=== PATIENT | female | born 1945 | race Caucasian/White ===

== ENCOUNTER → 2017-11-05 | Outpatient (CLI) | payer MEDICARE, OTHER ==
[~2017-11-05] MED LIST: IOPAMIDOL 370 MG/ML 200 ML INFUS..BTL INJ ONE; SODIUM CHLORIDE 0.9% 50ML 50 ML ONE
[2017-11-05 16:52] LABS: BASOPHILS % 0.4 % (0.0-1.0); EOSINOPHILS # (AUTO) 0.1 (0.0-0.4); EOSINOPHILS % 1.7 % (0.0-6.0); HEMATOCRIT 39.2 % (34.2-44.1); HEMOGLOBIN 13.1 g/dL (12.0-16.0); LYMPHOCYTES # (AUTO) 3.2 (1.0-3.2); MEAN CORPUSCULAR HEMOGLOBIN 30.3 pg (28-32); MEAN CORPUSCULAR HGB CONC 33.4 g/dL (31-35); MEAN CORPUSCULAR VOLUME 90.5 fL (81-99); MONOCYTES # (AUTO) 0.5 (0.2-0.8); MONOCYTES % 7.1 % (4.4-11.3); NEUTROPHILS # (AUTO) 3.7 (2.1-6.9); NEUTROPHILS % 48.7 % (38.7-80.0); PLATELET COUNT 243 x10e3/uL (140-360); RED BLOOD COUNT 4.33 x10e6/uL (3.6-5.1); RED CELL DISTRIBUTION WIDTH 12.9 % (11.7-14.4)
[2017-11-05 17:08] LABS: ALANINE AMINOTRANSFERASE 13 IU/L (0-55); ALBUMIN 4.3 g/dL (3.5-5.0); ALBUMIN/GLOBULIN RATIO 1.1 (0.8-2.0); ALKALINE PHOSPHATASE 64 IU/L (40-150); BLOOD UREA NITROGEN 22 mg/dL (7-26); BUN/CREATININE RATIO 28 (6-25); CALCIUM 9.3 mg/dL (8.4-10.2); CARBON DIOXIDE 24 mmol/L (22-29); CHLORIDE 106 mmol/L (98-107); CREATININE, SERUM 0.78 mg/dL (0.57-1.11); EST GLOMERULAR FILTRATION RATE > 60 ML/MIN (60-); GLUCOSE 97 mg/dL (74-118); SODIUM 141 mmol/L (136-145)
--- NOTE | 2017-11-05 17:47 | Diagnostic Imaging Report ---
PROCEDURE: CT ABDOMEN WITH CONTRAST TECHNIQUE: The abdomen was scanned utilizing a multidetector helical scanner from the diaphragm to the iliac crest after the IV administration of 100 cc of Isovue 370 and the oral administration of water .Coronal and sagittal multiplanar reformations were obtained. COMPARISON: None. INDICATIONS: UPPER ABDOMINAL PAIN FINDINGS: LOWER THORAX: Linear opacities in bilateral lower lobes and lingula, likely represent subsegmental atelectasis or scarring. HEPATOBILIARY: No focal hepatic lesions. Mild prominence of the central intrahepatic bile ducts, and mild dilation of the common bile duct, which measures 8 mm at the mulu hepatis and 5 mm at the pancreatic head. No radiopaque intraluminal filling defect. Cholecystectomy clips. SPLEEN: No splenomegaly. PANCREAS: No focal masses or ductal dilatation. ADRENALS: No adrenal nodules. KIDNEYS: No hydronephrosis, stones, or solid mass lesions. PERITONEUM / RETROPERITONEUM: No free air or fluid. LYMPH NODES: No lymphadenopathy. VESSELS: The celiac trunk, superior and inferior mesenteric, and bilateral renal arteries are patent. Portal, superior mesenteric, and splenic veins are patent. GI TRACT: Moderate diffuse wall thickening involving the distal antrum and pylorus (series 2, images 23-25 and coronal images were 28-33). No focal lesions. Rest of the bowel shows no wall thickening. No obstruction. BONES AND SOFT TISSUES: Nonaggressive lytic lesion. Multilevel degenerative disc changes in the visualized spine. IMPRESSION: 1. findings in the distal antrum and pylorus likely represent gastritis (which may be infectious or inflammatory). No focal lesions are identified. Rest of the bowel is unremarkable. 2. Mild prominence of the central intrahepatic bile duct and mild dilation of the common bile duct likely reflect post cholecystectomy status. Da Antoine M.D. Dictated by: Da Antoine M.D. on 11/05/2017 at 17:47 Electronically approved by: Da Antoine M.D. on 11/05/2017 at 17:47
--- NOTE | 2017-11-05 18:00 | Diagnostic Imaging Report ---
PROCEDURE: A single AP view of the chest. COMPARISON: Patients [facility], DX, RIBS UNILAT W/CXR, 09/13/2016, 15:37. Patients [facility], DX, CHEST 2 VIEWS, 09/13/2016, 15:37. INDICATIONS: UPPER ABDOMINAL/CHEST PAIN FINDINGS: Lines/tubes: None. Lungs: Lungs are well-inflated. Ill-defined 6-7 mm density projecting over the proximal aspect of the right first rib, which is less clearly visualized on chest x-ray dated 09/13/2016, and not seen in multiple views of the right apex on ribs series . No consolidation or pulmonary edema. 03/2017 Pleura: There is no pleural effusion or pneumothorax. Heart and mediastinum: Cardiac silhouette is unremarkable. Pulmonary vasculature is normal. Atherosclerotic calcification of the thoracic aortic arch. Bones: No acute bony abnormality. IMPRESSION: 1. No acute cardiopulmonary abnormalities 2. Ill-defined 6-7 mm density projecting over the right first rib probably represents summation of bony and apical pleural shadows, as it is seen in some, but not all previous views. A focal sclerotic lesion of the first rib, such as bone island, is less likely. Recommend followup chest, PA and lateral in 3 months to document stability. Alternatively, a chest CT may be obtained for further evaluation, if clinically indicated. Da Antoine M.D. Dictated by: Da Antoine M.D. on 11/05/2017 at 18:00 Electronically approved by: Da Antoine M.D. on 11/05/2017 at 18:00
== END ==
LOC: CT 16:23
PROVIDERS: ATTEND Internal Medicine Gastroenterology
DX: R10.13 Epigastric pain (principal); R19.7 Diarrhea, unspecified; K29.70 Gastritis, unspecified, without bleeding
CPT/HCPCS: 36415; 71045; 74160; 80053; 85025; Q9967

== ENCOUNTER → 2017-12-04 | Outpatient (CLI) | payer MEDICARE, OTHER ==
--- NOTE | 2017-12-04 12:12 | Diagnostic Imaging Report ---
EXAMINATION: MRI of the lumbar spine without contrast HISTORY: Low back pain for last 3 weeks COMPARISON: Lumbar spine MRI on 10/05/2014 TECHNIQUE: Sagittal T1, T2, STIR; axial T2 and proton density. FINDINGS: It is assumed that there are 5 lumbar vertebrae. Curvature/Alignment: Normal lordosis. Grade 1 degenerative spondylolisthesis at L4-L5, minimal retrolisthesis at L1-L2 and minimal anterolisthesis at L3-L4 are unchanged. Vertebrae: No evidence of recent fracture, infection, or neoplasm. Minimal chronic anterior wedging of the partially visualized T10 and T11 vertebral bodies, unchanged from prior study. Chronic endplate degenerative changes in the lower thoracic spine and at L4-L5. New deep Schmorl node in the superior endplate of L4 and a shallow one in the inferior endplate of L4 with associated bone marrow edema. Conus: Normal, terminating at L1-L2 Cauda equina: Unremarkable. Lower thoracic: Unremarkable. Paraspinal soft tissues: Unremarkable. Degenerative changes: L1-L2: Persistent mild facet arthrosis without stenosis L2-L3: Minimal disc bulge and facet arthrosis without canal or foraminal stenosis L3-L4: Persistent symmetric disc bulge, ligamenta flava thickening and moderate facet arthrosis. Moderate spinal canal. No significant foraminal stenosis L4-L5: Decompressive laminectomy. Persistent symmetric disc bulge and facet arthrosis with [id number] foraminal stenoses. Improved previously seen mild degenerative synovitis. L5-S1: Minimal symmetric disc bulge and facet arthrosis. No canal or foraminal stenosis. IMPRESSION: 1. New deep Schmorl nodes at L4 with subchondral bone marrow edema. 2. Persistent moderate degenerative spinal canal stenosis at L3-L4. 3. Improved degenerative synovitis at L4-L5. Signed by: Dr. Rossy Velasquez M.D. on 12/04/2017 12:08 PM
--- NOTE | 2017-12-04 12:34 | Diagnostic Imaging Report ---
EXAMINATION: MRI of the cervical spine without contrast HISTORY: Neck and right arm pain for last 4 weeks COMPARISON: None available TECHNIQUE: Sagittal T1, T2, STIR; axial T2, gradient echo and T1. FINDINGS: Curvature: Normal lordosis. Vertebrae: No evidence of neoplasm, infection, or fracture. Chronic endplate degenerative changes at C3, C4 and T1 Foramen magnum: No mass, Chiari malformation, or basilar invagination. Spinal Cord: Normal size and signal intensity. Soft Tissues: Unremarkable. Degenerative changes: C1-C2: Mild degenerative changes without stenosis C2-C3: No stenoses C3-C4: Disc osteophyte complex formation, bilateral uncovertebral and facet arthrosis. Moderate spinal canal and mild to moderate foraminal stenosis C4-C5: Disc osteophyte complex formation, bilateral uncovertebral and facet arthrosis minimally on the left. Moderate spinal canal stenosis. Moderate right and severe left foraminal stenosis. C5-C6 to C7: Status post ACDF, with solid interbody fusion from C5 to C7 without spinal canal or foraminal stenoses C7-T1: Mild bilateral facet arthrosis without significant canal or foraminal stenosis. T1-T2 to T4-T5: Mild symmetric disc bulge without significant stenosis. IMPRESSION: 1. Status post ACDF with solid interbody fusion from C5 to C7 without stenosis. 2. Moderate degenerative spinal canal and [id number] foraminal stenosis at C3-C4. 3. Moderate degenerative spinal canal, moderate right and severe left foraminal stenosis at C4-C5. Signed by: Dr. Rossy Velasquez M.D. on 12/04/2017 12:30 PM
== END ==
LOC: MRI 09:28
PROVIDERS: ATTEND Orthopaedic Surgery Sports Medicine
DX: M54.16 Radiculopathy, lumbar region (principal); M54.12 Radiculopathy, cervical region
CPT/HCPCS: 72141; 72148

== ENCOUNTER → 2020-05-15 | Outpatient (CLI) | payer MEDICARE, OTHER ==
[2020-05-15 13:39] LABS: HEMATOCRIT 40.7 % (34.2-44.1); MEAN CORPUSCULAR HGB CONC 31.9 g/dL (31-35); MEAN CORPUSCULAR VOLUME 90.6 fL (81-99); PLATELET COUNT 278 x10e3/uL (140-360); RED BLOOD COUNT 4.49 x10e6/uL (3.6-5.1); RED CELL DISTRIBUTION WIDTH 12.5 % (11.7-14.4)
[2020-05-15 13:57] LABS: ALANINE AMINOTRANSFERASE 14 IU/L (0-55); ALBUMIN 4.3 g/dL (3.5-5.0); ALBUMIN/GLOBULIN RATIO 1.2 (0.8-2.0); ALKALINE PHOSPHATASE 79 IU/L (40-150); BLOOD UREA NITROGEN 16 mg/dL (7-26); BUN/CREATININE RATIO 20 (6-25); CALCIUM 8.8 mg/dL (8.4-10.2); CARBON DIOXIDE 21 mmol/L (22-29); CHLORIDE 105 mmol/L (98-107); CHOL/HDL RATIO 4.6 (3.0-3.6); CHOLESTEROL 192 MD/DL (0-199); CREATININE, SERUM 0.81 mg/dL (0.57-1.11); EST GLOMERULAR FILTRATION RATE > 60 ML/MIN (60-); GLUCOSE 91 mg/dL (74-118); HDL CHOLESTEROL 42 MG/DL (40-60); LDL CHOLESTEROL 114 MG/DL (60-130); SODIUM 141 mmol/L (136-145); TRIGLYCERIDES 179 MG/DL (0-149)
[2020-05-15 14:01] LABS: EOSINOPHILS % (MANUAL) 1 % (0-7); LYMPHOCYTES % (MANUAL) 38 % (19-48); MONOCYTES % (MANUAL) 23 % (3.4-9.0); NEUTROPHILS % (MANUAL) 38 % (40-74)
[2020-05-15 14:03] LABS: PLATELET ESTIMATE ADEQUATE; PLATELET MORPHOLOGY COMMENT NORMAL; RBC MORPHOLOGY COMMENT NORMAL
--- NOTE | 2020-05-15 14:28 | Diagnostic Imaging Report ---
EXAMINATION: CHEST 2 VIEWS INDICATION: Cough COMPARISON: None FINDINGS: LINES/TUBES:None LUNGS:The lungs are well-inflated. No focal consolidation or pulmonary edema. PLEURA:No pleural effusion or pneumothorax. MEDIASTINUM:The cardiomediastinal silhouette appears normal in size and shape. Atherosclerotic calcifications of the thoracic aorta. BONES/SOFT TISSUES:No acute osseous injury. ABDOMEN:No free air under the diaphragm. Status post cholecystectomy. IMPRESSION: No focal pneumonia or pulmonary edema. Signed by: Cherie Padilla MD on 05/15/2020 2:24 PM
--- NOTE | 2020-05-15 14:29 | Diagnostic Imaging Report ---
EXAMINATION: SINUSES (PARANASAL)MIN 3VIEWS INDICATION: Cough COMPARISON: None FINDINGS: The paranasal sinuses and mastoid air cells appear well aerated. No air-fluid level. No acute osseous injury. Degenerative changes of the partially visualized upper cervical spine, better evaluated on prior cervical spine MRI. IMPRESSION: Radiographically clear paranasal sinuses and mastoid air cells. Signed by: Cherie Padilla MD on 05/15/2020 2:26 PM
== END ==
LOC: RAD 13:23
PROVIDERS: ATTEND Internal Medicine Pulmonary Disease
DX: R05 Cough (principal); H66.90 Otitis media, unspecified, unspecified ear
CPT/HCPCS: 36415; 70220; 71046; 80053; 80061; 85007; 85027

== ENCOUNTER → 2020-09-04 | Outpatient (CLI) | payer OTHER ==
[~2020-09-04] MED LIST changes: +COVID-19 VACC, MRNA(MODERNA)/PF 100 MCG/0.5 ML VIAL IM ONE; -IOPAMIDOL 370 MG/ML 200 ML INFUS..BTL INJ ONE; -SODIUM CHLORIDE 0.9% 50ML 50 ML ONE
== END ==
LOC: VACCPMC 18:38
DX: Z23 Encounter for immunization (principal); Z20.828 Contact with and (suspected) exposure to other viral communicable diseases

== ENCOUNTER → 2020-10-09 | Outpatient (CLI) | payer OTHER | END | DRG 951 | LOC: VACCPMC 07:53 | DX: Z23 Encounter for immunization (principal); Z20.822 Contact with and (suspected) exposure to COVID-19 | CPT/HCPCS: 0012A; 91301 ==

== ENCOUNTER → 2022-12-23 | Outpatient (CLI) | payer MEDICARE, OTHER ==
[2022-12-23 13:31] LABS: BASOPHILS % 0.4 % (0.0-1.0); EOSINOPHILS # (AUTO) 0.2 (0.0-0.4); EOSINOPHILS % 2.9 % (0.0-6.0); HEMATOCRIT 41.2 % (34.2-44.1); HEMOGLOBIN 13.2 g/dL (12.0-16.0); LYMPHOCYTES # (AUTO) 1.4 (1.0-3.2); LYMPHOCYTES % 24.2 % (18.0-39.1); MEAN CORPUSCULAR HEMOGLOBIN 29.5 pg (28-32); MEAN CORPUSCULAR VOLUME 92.2 fL (81-99); MONOCYTES # (AUTO) 0.6 (0.2-0.8); MONOCYTES % 10.2 % (4.4-11.3); NEUTROPHILS # (AUTO) 3.5 (2.1-6.9); NEUTROPHILS % 62.3 % (38.7-80.0); PLATELET COUNT 224 x10e3/uL (140-360); RED BLOOD COUNT 4.47 x10e6/uL (3.6-5.1); RED CELL DISTRIBUTION WIDTH 13.1 % (11.7-14.4)
== END ==
LOC: RAD 12:48
PROVIDERS: ATTEND Internal Medicine Pulmonary Disease
DX: R50.9 Fever, unspecified (principal); Z20.822 Contact with and (suspected) exposure to COVID-19
CPT/HCPCS: 36415; 71046; 85025; 87070; 87205; U0002

== ENCOUNTER → 2024-10-27 | Outpatient (REF) | payer MEDICARE, OTHER | LOC: MRI 14:00 | PROVIDERS: ATTEND Emergency Medicine | DX: M43.22 Fusion of spine, cervical region (principal) | CPT/HCPCS: 72141 ==